=== PATIENT | male | born 1945 | race Two or more races ===

== ENCOUNTER 2022-10-16 05:42 | Inpatient (IN) | payer MEDICARE, OTHER ==
[~2022-10-16] VITALS: Ht 180.3 cm; Wt 104.0 kg
[2022-10-16 07:01] LABS: Basophils # (auto) 0 10 ^3/uL (0-0.2); Basophils % (auto) 1.1 % (0.0-2.0); Eosinophils # (auto) 0.2 10 ^3/uL (0-0.8); Eosinophils % (auto) 5.5 % (0.0-7.0); Hematocrit 42.8 % (41.0-53.0); Hemoglobin 14.2 g/dL (13.5-17.5); Lymphocytes % (auto) 22.4 % (10.0-50.0); Mean Corpuscular Hemoglobin 28.3 pg (28.0-32.0); Mean Corpuscular Hgb Conc. 33.1 g/dL (32.0-36.0); Mean Corpuscular Volume 85.5 fL (80.0-100.0); Monocytes # (auto) 0.4 10 ^3/uL (0-1.3); Monocytes % (auto) 8.4 % (0.0-12.0); Neutrophils # (auto) 2.7 10 ^3/uL (1.6-8.6); Neutrophils % (auto) 62.6 % (37.0-80.0); Red Blood Cells 5.01 10^6/uL (4.5-5.90); Red Cell Distribution Width 14.6 % (11.8-14.3); White Blood Cell 4.4 10^3/uL (4.4-10.8)
[2022-10-16 07:29] LABS: Calcium 8.6 mg/dL (8.5-10.1); Potassium 4.1 mmol/L (3.5-5.1)
[2022-10-16 07:36] LABS: Bilirubin, Total 0.7 mg/dL (0.2-1.0); INR 1.14 (0.9-1.15); Partial Thromboplastin Time 39.8 sec (24.6-33.4); Total Protein 6.8 g/dL (6.4-8.2)
[2022-10-16] MEDS ORDERED: ASPirin 325 MG TAB PO ONE (08:00)
[2022-10-16] MEDS ORDERED: METOPROLOL SUCCINATE XL 50 MG TAB PO SCH (10:00)
[2022-10-16] MEDS ORDERED: MORPHINE SULFATE INJ 2 MG/ml SYRG IV PRN (10:15)
[2022-10-16] MEDS ORDERED: ACETAMINOPHEN 325 MG TAB PO PRN (10:15)
[2022-10-16] MEDS ORDERED: HYDROcodone-ACET 5/325MG TAB PO PRN (10:15)
[2022-10-16] MEDS ORDERED: NITROGLYCERIN 0.4 MG SL TAB SL PRN (10:15)
[2022-10-16] MEDS ORDERED: ONDANSETRON HCL 4 MG/2 ML VIAL IV PRN (10:15)
[2022-10-16 11:02] LABS: Urine Bacteria NONE SEEN /hpf (None Seen); Urine Blood Negative /uL (Negative); Urine Specific Gravity 1.009 (1.001-1.035); Urine WBC 1 /hpf (0 - 3)
[2022-10-16 11:29] LABS: Cholesterol 105 mg/dL (< 200); HDL Cholesterol 49 mg/dL (40-59); LDL Cholesterol 50 mg/dL (< 100); Triglycerides 70 mg/dL (< 150)
[2022-10-16] MEDS: MORPHINE SULFATE INJ 2 MG/ml SYRG IV PRN ×2 (14:34→20:39)
[2022-10-16] MEDS ORDERED: RIVAROXABAN 15 MG TAB PO SCH (18:00)
[2022-10-16] MEDS ORDERED: ATORVASTATIN 20 MG TAB PO SCH (22:00)
[2022-10-16 23:00] VITALS: BP 181/82
[2022-10-16] MEDS ORDERED: hydrALAZINE HCL 20 MG/ML VL ONE (23:50)
[2022-10-17] MEDS ORDERED: hydrALAZINE HCL 20 MG/ML VL IV ONE
[2022-10-17 01:00] VITALS: BP 145/86
[2022-10-17 01:15] VITALS: BP_SYST 181; BP_SYST 187; BP_DIAS 82; BP_DIAS 90
[2022-10-17] MEDS ORDERED: AMLO-489 PO (02:26)
[2022-10-17] MEDS ORDERED: MORP1TAB14 PO (02:28)
[2022-10-17] MEDS ORDERED: PREG100C PO (02:29)
[2022-10-17] MEDS ORDERED: ASPI-543 PO (02:32)
[2022-10-17] MEDS ORDERED: METO-158 PO (02:32)
[2022-10-17 03:42] VITALS: BP 152/97
[2022-10-17] MEDS: MORPHINE SULFATE INJ 2 MG/ml SYRG IV PRN ×2 (03:42)
[2022-10-17] MEDS ORDERED: ASPirin 81 mg TAB PO SCH (10:00)
== END 2022-10-17 04:50 | disposition left against medical advice (07) | DRG 150 ==
LOC: ER 05:42 → TELE 10:13 → TELE-WESTW 21:39
PROVIDERS: ADMIT Registered Nurse; ATTEND Registered Nurse
DX: R04.0 Epistaxis (principal); I21.A1 Myocardial infarction type 2; D68.59 Other primary thrombophilia; Z20.822 Contact with and (suspected) exposure to COVID-19; Z53.29 Procedure and treatment not carried out because of patient's decision for other reasons; E66.01 Morbid (severe) obesity due to excess calories; E78.5 Hyperlipidemia, unspecified; I11.0 Hypertensive heart disease with heart failure; I48.0 Paroxysmal atrial fibrillation; I50.9 Heart failure, unspecified; Z79.01 Long term (current) use of anticoagulants; Z95.0 Presence of cardiac pacemaker; Z68.32 Body mass index [BMI] 32.0-32.9, adult; Z90.49 Acquired absence of other specified parts of digestive tract
CPT/HCPCS: 36415; 71045; 80053; 80061; 81001; 83036; 84443; 84484; 85025; 85610; 85730; 87426; 93005; 93306; 93886; 99291; G0378

== ENCOUNTER 2024-05-28 15:00 | Emergency (ER) | payer OTHER ==
[~2024-05-28] VITALS: Ht 180.3 cm; Wt 113.6 kg
[~2024-05-28 15:00] MED LIST: AMLO1TAB22 PO; ASPI-543 PO; METO-158 PO; MORP1TAB14 PO; PREG100C PO
[2024-05-28 15:55] LABS: Basophils # (auto) 0 10 ^3/uL (0-0.2); Basophils % (auto) 0.9 % (0.0-2.0); Eosinophils # (auto) 0.1 10 ^3/uL (0-0.8); Eosinophils % (auto) 1.8 % (0.0-7.0); Hematocrit 45.8 % (41.0-53.0); Hemoglobin 15.1 g/dL (13.5-17.5); Lymphocytes # (auto) 1.2 10 ^3/uL (0.4-5.4); Lymphocytes % (auto) 23.2 % (10.0-50.0); Mean Corpuscular Hemoglobin 28.4 pg (28.0-32.0); Mean Corpuscular Volume 86.2 fL (80.0-100.0); Monocytes # (auto) 0.4 10 ^3/uL (0-1.3); Monocytes % (auto) 8.4 % (0.0-12.0); Neutrophils # (auto) 3.3 10 ^3/uL (1.6-8.6); Neutrophils % (auto) 65.7 % (37.0-80.0); Nucleated Red Blood Cells % 0.2 %; Red Blood Cells 5.31 10^6/uL (4.5-5.90); Red Cell Distribution Width 14.9 % (11.8-14.3)
[2024-05-28 16:16] LABS: Alanine Aminotransferase 38 U/L (7-40); Albumin 4.2 g/dL (3.2-4.8); Alkaline Phosphatase 119 U/L (46-116); Anion Gap 6 (5-15); Aspartate Aminotransferase 30 U/L (13-40); BUN/Creatinine Ratio 26.4 (10.0-20.0); Blood Urea Nitrogen 29 mg/dL (9-23); Calcium 9.1 mg/dL (8.5-10.1); Carbon Dioxide 24 mmol/L (20-30); Chloride 110 mmol/L (98-107); Glucose 114 mg/dL (74-106); Magnesium 2.3 mg/dL (1.6-2.6); Potassium 5.2 mmol/L (3.5-5.1); Sodium 140 mmol/L (136-145)
[2024-05-28 16:17] LABS: Bilirubin, Total 0.5 mg/dL (0.2-1.0); Total Protein 6.6 g/dL (5.7-8.2)
[2024-05-28 20:23] VITALS: BP 111/66; PULSE 69; RESP 18; TEMP 97.8; O2SAT 96
== END 2024-05-28 20:25 | disposition home or self-care (01) ==
LOC: EDBD 15:00 → ER 15:00
DX: E87.5 Hyperkalemia (principal); E86.0 Dehydration; I10 Essential (primary) hypertension; I48.91 Unspecified atrial fibrillation; Z98.890 Other specified postprocedural states
CPT/HCPCS: 36415; 70450; 71045; 80053; 82550; 83735; 84484; 85025; 93005